=== PATIENT | female | born 2000 ===

== ENCOUNTER → 2023-08-29 | Outpatient (CLI) | payer OTHER ==
[2023-08-29 14:54] LABS: Candida Group, PCR NOT DETECTED (NOT DETECT)
[2023-08-29 14:55] LABS: Bacterial Vaginosis PCR Positive (NEGATIVE); Candida glabrata-krusei, PCR DETECTED (NOT DETECT)
== END | disposition home or self-care (01) ==
LOC: LAB SHORT 11:01
PROVIDERS: Advanced Practice Midwife
DX: N76.0 Acute vaginitis (principal)
CPT/HCPCS: 87481; 87661; 87801

== ENCOUNTER 2024-01-17 13:10 | Inpatient (IN) | payer OTHER ==
[2024-01-17] VITALS (11 sets, daily range): BP systolic 120–154; BP diastolic 62–94
[~2024-01-17] VITALS: Ht 160 cm; Wt 107.3 kg
[2024-01-17] MEDS ORDERED: Misoprostol 200 MCG Tab XX PRN (13:50)
[2024-01-17] MEDS ORDERED: Ondansetron HCl 2 MG / ML 2ML Vial IV PRN (13:50)
[2024-01-17] MEDS ORDERED: Methylergonovine Maleate 0.2MG / ML 1ML Amp IM PRN ×2 (13:50→14:55)
[2024-01-17] MEDS ORDERED: Acetaminophen 500 MG Tab PO PRN (13:50)
[2024-01-17] MEDS ORDERED: FentaNYL Citrate 50 MCG/ML 2 ML Injection IV PRN (13:50)
[2024-01-17] MEDS ORDERED: Calcium Carbonate 500 MG Tab Chew PO PRN (13:50)
[2024-01-17] MEDS ORDERED: OXYTOCIN/RINGER'S LACTATE 500 ML IV SCH ×2 (13:50→15:00)
[2024-01-17] MEDS ORDERED: Misoprostol 200 MCG Tab PR PRN (13:50)
[2024-01-17] MEDS ORDERED: Oxytocin 10 Unit / ML Vial IM PRN (13:50)
[2024-01-17] MEDS ORDERED: Carboprost Tromethamine 250 MCG/ML 1ML Amp IM PRN (13:50)
[2024-01-17] MEDS ORDERED: Lactated Ringer's 1,000 ML IV PRN (13:50)
[2024-01-17] MEDS ORDERED: OXYTOCIN/RINGER'S LACTATE 500 ML IV ONE (13:55)
[2024-01-17] MEDS ORDERED: Tranexamic Acid 100 ML IV ONE ×2 (14:20→14:21)
--- NOTE | 2024-01-17 14:34 | NUR ---
ASSUMED CARE OF PT AT [id number]
[2024-01-17] MEDS ORDERED: Measles/Mumps/Rubella Vaccine 0.5 ML Vial SC SCH (14:55)
[2024-01-17] MEDS ORDERED: Lactated Ringer's 1,000 ML IV SCH (14:55)
[2024-01-17] MEDS ORDERED: Ibuprofen 400 MG Tab PO PRN (14:55)
[2024-01-17] MEDS ORDERED: Benzocaine Topical Anesthetic Spray 60GM TOP PRN (15:00)
[2024-01-17] MEDS ORDERED: OxyCODONE 5 mg/Acetamin 325 mg TABLET PO PRN (15:00)
[2024-01-17] MEDS ORDERED: Lanolin Cream TOP PRN (15:00)
[2024-01-17] MEDS ORDERED: Ketorolac Tromethamine 30mg Vial IV ONE (15:00)
[2024-01-17] MEDS ORDERED: Ketorolac Tromethamine 30mg Vial IV PRN (15:00)
[2024-01-17] MEDS ORDERED: Docusate Sodium 100 MG Cap PO PRN (15:00)
[2024-01-17] MEDS ORDERED: Witch Hazel/Glycerin PADS TOP PRN (15:00)
[2024-01-17] MEDS ORDERED: Misoprostol 200 MCG Tab PO PRN (15:05)
[2024-01-18 00:13] VITALS: BP 119/65
[2024-01-18 04:16] VITALS: BP 116/65
[2024-01-18 06:18] LABS: Hematocrit 33.4 % (33.0-51.0); Hemoglobin 10.9 g/dL (11.5-16.0); Mean Corpuscular HGB 26.3 pg (26.0-34.0); Mean Corpuscular HGB Conc 32.6 g/dL (31.5-36.5); Mean Corpuscular Volume 81 fL (80-100); Mean Platelet Volume 10.5 fL (9.1-12.4); Platelet Count 262 K/mm3 (150-400); RDW Coefficient Variation 13.4 % (11.7-14.2); RDW Standard Deviation 38.5 fL (35.1-46.3); Red Blood Cell Count 4.15 M/mm3 (3.80-5.20)
[2024-01-18 08:10] VITALS: BP 117/70
[2024-01-18] MEDS ORDERED: Prenatal Vit/FE Fumarate/FA 1 Tab PO SCH (09:00)
[2024-01-18 11:19] VITALS: BP 122/75
[2024-01-18 15:47] VITALS: BP 129/79
== END 2024-01-18 16:25 | disposition home or self-care (01) | DRG 806 ==
LOC: BC 13:10 → OBS 13:10 → BC 13:40 → OBS 13:40 → BC 01-18 16:25
PROVIDERS: ADMIT Advanced Practice Midwife
PROC: 10E0XZZ Delivery of Products of Conception, External Approach (ICD-10-PCS; principal; 2024-01-17)
PROC: 10907ZC Drainage of Amniotic Fluid, Therapeutic from Products of Conception, Via Natural or Artificial Opening (ICD-10-PCS; 2024-01-17)
PROC: 0UQG7ZZ Repair Vagina, Via Natural or Artificial Opening (ICD-10-PCS; 2024-01-17)
PROC: 0UQMXZZ Repair Vulva, External Approach (ICD-10-PCS; 2024-01-17)
DX: O48.0 Post-term pregnancy (principal); O71.4 Obstetric high vaginal laceration alone; Z37.0 Single live birth; O99.324 Drug use complicating childbirth; Z3A.41 41 weeks gestation of pregnancy; F12.90 Cannabis use, unspecified, uncomplicated
CPT/HCPCS: 36415; 85027; 90471; 90707; A9270; J1885; J2210; J2590; J3010

== ENCOUNTER 2024-06-10 15:58 | Emergency (ER) | payer OTHER ==
[~2024-06-10] VITALS: Ht 162.6 cm; Wt 99.8 kg
[2024-06-10 16:02] VITALS: BP 136/81
[2024-06-10 16:22] LABS: BASOPHILS ABSOLUTE AUTO 0.08 K/mm3 (0.00-0.23); BASOPHILS PERCENT AUTO 1 % (0-2); EOSINOPHILS ABSOLUTE AUTO 0.14 K/mm3 (0.00-0.68); EOSINOPHILS PERCENT AUTO 1 % (0-6); Hematocrit 39.9 % (33.0-51.0); Hemoglobin 12.7 g/dL (11.5-16.0); IMMATURE GRAN ABSOLUTE AUTO 0.06 K/mm3 (0.00-0.10); IMMATURE GRAN PERCENT AUTO 1 % (0-1); LYMPHOCYTES ABSOLUTE AUTO 2.02 K/mm3 (0.84-5.20); LYMPHOCYTES PERCENT AUTO 15 % (21-46); MONOCYTES ABSOLUTE AUTO 1.11 K/mm3 (0.16-1.47); MONOCYTES PERCENT AUTO 8 % (4-13); Mean Corpuscular HGB 25.2 pg (26.0-34.0); Mean Corpuscular HGB Conc 31.8 g/dL (31.5-36.5); Mean Corpuscular Volume 79 fL (80-100); Mean Platelet Volume 9.5 fL (9.1-12.4); NEUTROPHILS PERCENT AUTO 74 % (41-73); Platelet Count 282 K/mm3 (150-400); RDW Coefficient Variation 16.4 % (11.7-14.2); RDW Standard Deviation 46.7 fL (35.1-46.3); Red Blood Cell Count 5.03 M/mm3 (3.80-5.20); White Blood Cell Count 13.21 K/mm3 (4.00-11.30)
[2024-06-10 16:41] LABS: Albumin, Blood 3.8 g/dL (3.4-5.0); Bilirubin, Total 0.4 mg/dL (0.1-1.0); Bun/Creatinine Ratio 21.2 (12.0-20.0); Creatinine, Blood 0.71 mg/dL (0.40-1.00); Globulin, Blood 3.8 g/dL (2.2-4.0); Potassium, Blood 4.1 mmol/L (3.5-5.5); Total Protein, Blood 7.6 g/dL (6.4-8.2)
== END 2024-06-10 18:00 | disposition home or self-care (01) ==
LOC: ER 15:58
PROVIDERS: Physician Assistant
DX: K80.50 Calculus of bile duct without cholangitis or cholecystitis without obstruction (principal)
CPT/HCPCS: 71046; 80053; 85025; 93005; 93010; 99283-25